=== PATIENT | female | born 1985 | race Caucasian/White ===

== ENCOUNTER 2017-06-18 15:10 | Emergency (ER) | payer OTHER ==
[~2017-06-18 15:10] MED LIST: ALBUTEROL17 GM; AMOXICILLIN PO; AMOXICILLIN500 M1 PO; AMOXIL500 M1 PO; BENZONATATE; COLACE PO; FLEXERIL PO; IBUPROFEN; IBUPROFEN800 MG PO; LEVAQUIN; LORTAB 5/500 TA1 TA1 PO; METHADONE PO; MOBIC PO; MOTRIN600 MG PO; ORTHO TRI-7 DAYS X PO; VICODIN 5/1 TAB 5/50 PO; ZOLOFT PO
[2017-06-18 15:48] LABS: URINE SOURCE CLEAN CATCH
[2017-06-18 15:50] LABS: URINE APPEARANCE SL CLOUDY; URINE BILIRUBIN NEG (NEG); URINE BLOOD 2+ (NEG); URINE COLOR YELLOW; URINE GLUCOSE NEG (NORM); URINE KETONE NEG (NEG); URINE LEUKOCYTE ESTERASE 3+ (NEG); URINE NITRATE NEG (NEG); URINE PROTEIN NEG (NEG); URINE UROBILINOGEN 0.2 MG/DL (NORM)
[2017-06-18 15:56] LABS: MICRO INDICATED? YES
[2017-06-18 15:59] LABS: CULTURE INDICATED? YES; URINE BACTERIA 1+ (NEG); URINE SQUAMOUS EPITHELIAL CELL FEW /[HPF]; URINE WBC 50-100 /[HPF] (0-5)
[2017-06-20 16:37] LABS: CHLAMYDIA TRACH Not Detected (Not Detected); N GONOR Detected (Not Detected)
== END 2017-06-18 17:08 | disposition home or self-care (01) ==
LOC: SED 15:10
PROVIDERS: Physician Assistant
DX: A59.9 Trichomoniasis, unspecified (principal); N39.0 Urinary tract infection, site not specified; Z91.030 Bee allergy status; Z79.899 Other long term (current) drug therapy
CPT/HCPCS: 81003; 84703; 87086; 87210; 87491; 87591; 87808; 87905; 96372; 99283; J0696